=== PATIENT | male | born 1965 | race Caucasian/White ===

== ENCOUNTER 2024-08-18 13:59 | Emergency (ER) | payer BC ==
[~2024-08-18] VITALS: Ht 172.7 cm; Wt 90.7 kg
[2024-08-18 14:00] VITALS: BP_SYST 142; PULSE 89; RESP 18; TEMP 97.6; O2SAT 98
[2024-08-18 14:54] LABS: HEMOGLOBIN 16.8 g/dL (14.0-18.0); MEAN CORPUSCULAR HEMOGLOBIN 29 pg (27-31); WHITE BLOOD COUNT (AUTO) 7.5 K/uL (4.8-10.8)
[2024-08-18 14:58] LABS: BASOPHILS % (AUTO) 0.3 % (0.0-2.0); EOSINOPHILS % (AUTO) 0.3 % (0.0-4.0); HEMATOCRIT 47.3 % (36-54); LYMPHOCYTES # (AUTO) 1.1 K/uL (1.0-5.5); LYMPHOCYTES % (AUTO) 14.5 % (20.5-51.5); MEAN CORPUSCULAR HGB CONC 36 % (32-36); MEAN CORPUSCULAR VOLUME 83 fL (79.0-98.0); MONOCYTES # (AUTO) 0.4 K/uL (0.0-1.0); NEUTROPHILS % (AUTO) 79.9 % (40.0-70.0); PLATELET COUNT (AUTO) 242 K/uL (130-430); RED BLOOD CELL COUNT(AUTO) 5.72 MIL/uL (4.2-6.2); RED CELL DISTRIBUTION WIDTH 13.4 % (9.0-15.0)
[2024-08-18 15:24] LABS: ALBUMIN 4.3 g/dL (3.4-4.8); CALCIUM 8.9 mg/dL (8.4-11.0); CREATININE 1.07 mg/dL (0.55-1.30); POTASSIUM 4.5 mmol/L (3.5-5.1); TOTAL PROTEIN, SERUM 7.5 g/dL (6.4-8.3)
[2024-08-18 15:27] LABS: BILIRUBIN,URINE NEGATIVE (NEGATIVE); BLOOD, URINE NEGATIVE (NEGATIVE); CLARITY/URINE CLEAR (CLEAR); COLOR,URINE YELLOW (YELLOW); GLUCOSE,URINE NEGATIVE (NEGATIVE); KETONES,URINE NEGATIVE (NEGATIVE); LEUKOCYTE ESTERASE ,URINE NEGATIVE (NEGATIVE); NITRITE, URINE NEGATIVE (NEGATIVE); PROTEIN URINE NEGATIVE (NEGATIVE); UROBILINOGEN,URINE 0.2 (0.2-1.0)
[2024-08-18] MEDS: KETOROLAC TROMETHAMINE 30 MG VIAL IM ONE (15:45)
[2024-08-18] MEDS ORDERED: CYCL10TA24 PO (15:52)
[2024-08-18] MEDS ORDERED: LIDO1ADH22 TP (15:52)
[2024-08-18] MEDS ORDERED: PERC10 PO (15:52)
[2024-08-18 16:14] VITALS: BP_SYST 142; PULSE 89; RESP 18; TEMP 97.6; O2SAT 98
[2024-08-18] MEDS ORDERED: OXYC-128 PO ×2 (16:35→16:36)
== END 2024-08-18 16:15 | disposition home or self-care (01) ==
LOC: SED 13:59
DX: N28.1 Cyst of kidney, acquired (principal); R10.9 Unspecified abdominal pain; N40.0 Benign prostatic hyperplasia without lower urinary tract symptoms; Z79.899 Other long term (current) drug therapy
CPT/HCPCS: 99285; 74176; 80053; 81001; 83690; 85025; 36415; 96372; 81003; J1885